=== PATIENT | male | born 2000 | race African-American/Black ===

== ENCOUNTER 2021-04-04 20:12 | Emergency (ER) | payer MEDICAID, OTHER ==
[~2021-04-04] VITALS: Ht 170.2 cm; Wt 69.0 kg
[2021-04-04 20:37] VITALS: BP 130/70
[2021-04-04] MEDS ORDERED: LORAZEPAM 0.5MG TABLET PO ONE (21:30)
== END 2021-04-04 22:14 | disposition home or self-care (01) ==
LOC: ER 20:12
DX: R00.2 Palpitations (principal); F43.0 Acute stress reaction; F12.10 Cannabis abuse, uncomplicated
CPT/HCPCS: 99283

== ENCOUNTER 2021-04-14 15:14 | Emergency (ER) | payer MEDICAID, OTHER ==
[~2021-04-14] VITALS: Ht 175.3 cm; Wt 63.0 kg
[2021-04-14] MEDS ORDERED: LORAZEPAM 0.5MG TABLET PO ONE (21:00)
[2021-04-14] MEDS ORDERED: HYDR-3992 MT (22:23)
[2021-04-14 22:55] VITALS: BP 137/75
== END 2021-04-14 22:58 | disposition home or self-care (01) ==
LOC: ER 15:14
DX: F41.9 Anxiety disorder, unspecified (principal); R07.89 Other chest pain; F12.10 Cannabis abuse, uncomplicated
CPT/HCPCS: 71045; 99283

== ENCOUNTER 2021-04-18 23:06 | Emergency (ER) | payer MEDICAID, OTHER ==
[~2021-04-18] VITALS: Ht 182.9 cm; Wt 66.0 kg
[~2021-04-18 23:06] MED LIST: HYDR-3992 MT
[2021-04-19] MEDS ORDERED: LORAZEPAM 0.5MG TABLET PO ONE (01:15)
[2021-04-19] MEDS ORDERED: CLON0.5T4 PO (02:02)
[2021-04-19 02:15] VITALS: BP 115/85
== END 2021-04-19 02:28 | disposition home or self-care (01) ==
LOC: ER 23:34
DX: F41.0 Panic disorder [episodic paroxysmal anxiety] (principal)
CPT/HCPCS: 99283